=== PATIENT | male | born 1960 | race Caucasian/White ===

== ENCOUNTER 2024-01-05 03:16 | Inpatient (IN) | payer MEDICAID ==
[~2024-01-05] VITALS: Ht 175.3 cm; Wt 74.8 kg
[2024-01-05 03:16] VITALS: BP_SYST 107; PULSE 117; RESP 14; TEMP 97.6; O2SAT 97
[2024-01-05] MEDS: cefTRIAXone 1 GM IVPB PREMIX 50 ML IV ONE (04:29)
[2024-01-05] MEDS: NACL 0.9% 1,000 ML IV ONE ×2 (04:29→05:00)
[2024-01-05] MEDS ORDERED: CLOP75TA32 PO (04:31)
[2024-01-05] MEDS ORDERED: ASPI-1393 PO (04:31)
[2024-01-05] MEDS ORDERED: LIP80 PO (04:31)
[2024-01-05] MEDS ORDERED: METF-379 PO (04:31)
[2024-01-05] MEDS ORDERED: METO25TA3 PO (04:31)
[2024-01-05 04:39] LABS: BASOPHILS % (AUTO) 0.2 % (0.0-2.0); EOSINOPHILS % (AUTO) 0.2 % (0.0-4.0); HEMATOCRIT 52.7 % (36-54); HEMOGLOBIN 18.1 g/dL (14.0-18.0); LYMPHOCYTES # (AUTO) 1.6 K/uL (1.0-5.5); LYMPHOCYTES % (AUTO) 11.7 % (20.5-51.5); MEAN CORPUSCULAR HEMOGLOBIN 30 pg (27-31); MEAN CORPUSCULAR HGB CONC 34 % (32-36); MEAN CORPUSCULAR VOLUME 88 fL (79.0-98.0); MONOCYTES # (AUTO) 1.1 K/uL (0.0-1.0); MONOCYTES % (AUTO) 8.1 % (1.7-9.3); NEUTROPHILS # (AUTO) 10.8 K/uL (1.8-7.7); NEUTROPHILS % (AUTO) 79.8 % (40.0-70.0); PLATELET COUNT (AUTO) 438 K/uL (130-430); RED BLOOD CELL COUNT(AUTO) 6.02 MIL/uL (4.2-6.2); WHITE BLOOD COUNT (AUTO) 13.5 K/uL (4.8-10.8)
[2024-01-05 04:44] LABS: ALBUMIN 4.5 g/dL (3.4-4.8); BILIRUBIN,DIRECT 0.3 mg/dL (0.0-0.3); CALCIUM 10.4 mg/dL (8.4-11.0); CREATININE 3.69 mg/dL (0.55-1.30); POTASSIUM 4.2 mmol/L (3.5-5.1); TOTAL BILIRUBIN 1.1 mg/dL (0.0-1.0); TOTAL PROTEIN, SERUM 9.7 g/dL (6.4-8.3)
[2024-01-05] MEDS ORDERED: cloNIDine HCL 0.2 MG TABLET PO PRN (05:45)
[2024-01-05] MEDS: NACL 0.9% 1,000 ML IV SCH (06:28)
[2024-01-05 07:44] LABS: BILIRUBIN,URINE 2+ (NEGATIVE); BLOOD, URINE 3+ (NEGATIVE); COLOR,URINE YELLOW (YELLOW); GLUCOSE,URINE TRACE (NEGATIVE); KETONES,URINE TRACE (NEGATIVE); LEUKOCYTE ESTERASE ,URINE TRACE (NEGATIVE); NITRITE, URINE NEGATIVE (NEGATIVE); PH,URINE 5.5 (5.0-8.0); PROTEIN URINE TRACE (NEGATIVE); UROBILINOGEN,URINE 0.2 (0.2-1.0)
[2024-01-05 07:45] LABS: CLARITY/URINE SLIGHTLY HAZY (CLEAR)
[2024-01-05 08:28] LABS: BACTERIA,URINE None Seen /HPF (None Seen)
[2024-01-05 08:29] LABS: YEAST,URINE Moderate /HPF (None Seen)
[2024-01-05 11:09] VITALS: BP_SYST 123; PULSE 105; RESP 18; TEMP 97.6
[2024-01-05 12:00] VITALS: BP_SYST 128; PULSE 106; RESP 17; TEMP 97.8; O2SAT 97
[2024-01-05] MEDS ORDERED: TEMAZEPAM 15 MG CAPSULE PO PRN (13:00)
[2024-01-05] MEDS ORDERED: ACETAMINOPHEN 325 MG TABLET PO PRN ×2 (13:00)
[2024-01-05] MEDS ORDERED: ONDANSETRON HCL 4 MG/2 ML VIAL IVP PRN (13:00)
[2024-01-05 14:19] LABS: ALBUMIN 3.1 g/dL (3.4-4.8); CALCIUM 8.2 mg/dL (8.4-11.0); CREATININE 1.8 mg/dL (0.55-1.30); PHOSPHORUS 3.8 mg/dL (2.7-4.5); POTASSIUM 3.4 mmol/L (3.5-5.1); TOTAL BILIRUBIN 0.7 mg/dL (0.0-1.0)
[2024-01-05] MEDS: TAMSULOSIN HCL 0.4 MG CAP PO ONE (14:34)
[2024-01-05] MEDS: CLOPIDOGREL BISULFATE 75 MG TABLET PO ONE (14:34)
[2024-01-05 16:14] VITALS: BP_SYST 129; PULSE 116; RESP 18; TEMP 98; O2SAT 97
[2024-01-05 20:00] VITALS: BP_SYST 131; PULSE 103; RESP 18; TEMP 97.3; O2SAT 95; O2SAT 96
[2024-01-05] MEDS: ATORVASTATIN 20 MG TABLET PO SCH (22:01)
[2024-01-06 00:18] VITALS: BP_SYST 96; PULSE 83; RESP 14; TEMP 97.7; O2SAT 97
[2024-01-06] MEDS: cefTRIAXone 1 GM in D5W 50 ML IV SCH (06:45)
[2024-01-06 07:45] LABS: BASOPHILS % (AUTO) 0.2 % (0.0-2.0); EOSINOPHILS # (AUTO) 0.1 K/uL (0.0-0.4); EOSINOPHILS % (AUTO) 1.5 % (0.0-4.0); HEMATOCRIT 42.4 % (36-54); HEMOGLOBIN 14.7 g/dL (14.0-18.0); LYMPHOCYTES # (AUTO) 0.9 K/uL (1.0-5.5); LYMPHOCYTES % (AUTO) 12.3 % (20.5-51.5); MEAN CORPUSCULAR HEMOGLOBIN 30 pg (27-31); MEAN CORPUSCULAR HGB CONC 35 % (32-36); MEAN CORPUSCULAR VOLUME 88 fL (79.0-98.0); MONOCYTES # (AUTO) 0.7 K/uL (0.0-1.0); MONOCYTES % (AUTO) 9.9 % (1.7-9.3); NEUTROPHILS # (AUTO) 5.6 K/uL (1.8-7.7); NEUTROPHILS % (AUTO) 76.1 % (40.0-70.0); PLATELET COUNT (AUTO) 280 K/uL (130-430); RED BLOOD CELL COUNT(AUTO) 4.83 MIL/uL (4.2-6.2); RED CELL DISTRIBUTION WIDTH 12.7 % (9.0-15.0); WHITE BLOOD COUNT (AUTO) 7.4 K/uL (4.8-10.8)
[2024-01-06 08:00] VITALS: BP_SYST 131; PULSE 86; RESP 16; TEMP 98.4; O2SAT 96
[2024-01-06 08:06] LABS: ALBUMIN 3.2 g/dL (3.4-4.8); CALCIUM 8.5 mg/dL (8.4-11.0); CREATININE 1.09 mg/dL (0.55-1.30); TOTAL BILIRUBIN 0.9 mg/dL (0.0-1.0); TOTAL PROTEIN, SERUM 7.3 g/dL (6.4-8.3)
[2024-01-06] MEDS: ASPIRIN 81 MG TABLET(ECOTRIN) PO SCH (10:05)
[2024-01-06] MEDS: TAMSULOSIN HCL 0.4 MG CAP PO SCH (10:06)
[2024-01-06] MEDS: CLOPIDOGREL BISULFATE 75 MG TABLET PO SCH (10:06)
[2024-01-06] MEDS: METOPROLOL SUCCINATE 25 MG TAB.SR.24H (TOPROL XL) PO SCH (10:06)
[2024-01-06 12:00] VITALS: BP_SYST 120; PULSE 76; RESP 16; TEMP 98; O2SAT 98
[2024-01-06 16:43] VITALS: BP_SYST 122; PULSE 76; RESP 16; TEMP 97; O2SAT 96
[2024-01-06 20:00] VITALS: PULSE 83; RESP 20; TEMP 98; O2SAT 98
[2024-01-07 07:44] LABS: BASOPHILS % (AUTO) 0.3 % (0.0-2.0); EOSINOPHILS # (AUTO) 0.1 K/uL (0.0-0.4); EOSINOPHILS % (AUTO) 1.8 % (0.0-4.0); HEMATOCRIT 41.5 % (36-54); HEMOGLOBIN 14.2 g/dL (14.0-18.0); LYMPHOCYTES % (AUTO) 15.1 % (20.5-51.5); MEAN CORPUSCULAR HEMOGLOBIN 30 pg (27-31); MEAN CORPUSCULAR HGB CONC 34 % (32-36); MEAN CORPUSCULAR VOLUME 88 fL (79.0-98.0); MONOCYTES # (AUTO) 0.9 K/uL (0.0-1.0); MONOCYTES % (AUTO) 12.9 % (1.7-9.3); NEUTROPHILS # (AUTO) 4.8 K/uL (1.8-7.7); NEUTROPHILS % (AUTO) 69.9 % (40.0-70.0); PLATELET COUNT (AUTO) 243 K/uL (130-430); RED BLOOD CELL COUNT(AUTO) 4.69 MIL/uL (4.2-6.2); RED CELL DISTRIBUTION WIDTH 12.9 % (9.0-15.0); WHITE BLOOD COUNT (AUTO) 6.9 K/uL (4.8-10.8)
[2024-01-07 07:48] LABS: CALCIUM 8.4 mg/dL (8.4-11.0); CREATININE 0.9 mg/dL (0.55-1.30); POTASSIUM 3.9 mmol/L (3.5-5.1)
[2024-01-07 08:05] VITALS: BP_SYST 126; PULSE 85; RESP 15; TEMP 98.4; O2SAT 98
[2024-01-07 09:00] VITALS: O2SAT 98
[2024-01-07] MEDS ORDERED: NITR-85 PO (11:37)
[2024-01-07] MEDS ORDERED: TAMS0.4C96 PO (11:37)
[2024-01-07] MEDS ORDERED: GLIP5TAB26 PO (11:44)
[2024-01-07] MEDS ORDERED: DEXTROSE 50% JECT 50 ML DISP.SYRIN IVP PRN (12:00)
[2024-01-07] MEDS: INSULIN REGULAR, HUMAN 100 UNITS/ML, 3 ML VIAL (humuLIN R) SUBCUT PRN (12:09)
[2024-01-07 15:16] VITALS: BP_SYST 144; PULSE 105; RESP 15; TEMP 99; O2SAT 95
== END 2024-01-07 16:00 | disposition home or self-care (01) | DRG 422 ==
LOC: SED 03:16 → STU 05:34 → SMU 01-06 14:30
PROVIDERS: ADMIT Internal Medicine; ATTEND Internal Medicine
DX: E86.0 Dehydration (principal); N17.0 Acute kidney failure with tubular necrosis; I69.954 Hemiplegia and hemiparesis following unspecified cerebrovascular disease affecting left non-dominant side; E11.9 Type 2 diabetes mellitus without complications; I10 Essential (primary) hypertension; N39.0 Urinary tract infection, site not specified; E78.5 Hyperlipidemia, unspecified; Z79.899 Other long term (current) drug therapy; Z88.8 Allergy status to other drugs, medicaments and biological substances
CPT/HCPCS: 36415; 71045; 76770; 80048; 80053; 80076; 81000; 81001; 81015; 82550; 82948; 83037; 83605; 84100; 85025; 87040; 87086; 93005; 96365; 99285; G0378; J0696; J7030; J7060